=== PATIENT | male | born 1935 | race Caucasian/White ===

== ENCOUNTER 2021-05-27 12:21 | Inpatient (IN) | payer MEDICARE, BC ==
[~2021-05-27] VITALS: Ht 177.8 cm; Wt 64.5 kg
[2021-05-27] VITALS (8 sets, daily range): BP systolic 113–150; BP diastolic 72–89
[~2021-05-27 12:21] MED LIST: aspirin 81mg tab.chew ONE; heparin 10,000 units/1 ML INJ ONE; heparin, porcine-25,000 units/D5-250ml premix IV ONE; normal saline 1000ML IV soln ONE
[2021-05-27] MEDS ORDERED: aspirin 81mg tab.chew PO ONE (12:40)
[2021-05-27] MEDS ORDERED: heparin 10,000 units/1 ML INJ IV ONE (12:40)
[2021-05-27] MEDS ORDERED: fentaNYL/PF 50MCG/1 ML 2ML syringe ONE (12:45)
[2021-05-27] MEDS ORDERED: midazolam 1 mg/ML 2ml injection ONE (12:45)
[2021-05-27] MEDS ORDERED: nitroGLYCERIN-Tridil 50MG/D5W 250 ML IV ONE (12:45)
[2021-05-27] MEDS ORDERED: LIDOcaine 1% (10mg/ml)w/preservative inj. 20ml MDV ONE (12:45)
[2021-05-27] MEDS ORDERED: iohexol 350 MG/1 ML 200ml bottle ONE (12:46)
[2021-05-27] MEDS ORDERED: iohexol 350 MG/ML 50ML vial IV ONE (12:46)
--- NOTE | 2021-05-27 12:54 | NUR ---
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
[2021-05-27 12:57] LABS: BASOPHILS % (AUTO) 0.4 % (0-1); EOSINOPHILS % (AUTO) 0.1 % (0-6); HEMOGLOBIN 14.5 g/dl (14.0-17.9); LYMPHOCYTES # (AUTO) 1.3 X10'3 (1.1-4.8); MEAN CORPUSCULAR HEMOGLOBIN 30.5 PG (27.0-31.0); MEAN CORPUSCULAR HGB CONC 32.2 g/dL (33.0-36.5); MEAN CORPUSCULAR VOLUME 94.7 FL (78-98); MEAN PLATELET VOLUME 8.9 FL (7.4-10.4); MONOCYTES # (AUTO) 0.6 X10'3 (0-0.9); MONOCYTES % (AUTO) 5.1 % (2-12); NEUTROPHILS # (AUTO) 10.6 X10'3 (1.8-7.7); NEUTROPHILS % (AUTO) 84.4 % (42-75); PLATELET COUNT 237 X10'3 (140-440); RED BLOOD COUNT 4.75 X10'6 (4.70-6.10); RED CELL DISTRIBUTION WIDTH 14.1 % (11.5-14.5); WHITE BLOOD COUNT 12.6 X10'3 (4.5-11.0)
[2021-05-27] MEDS ORDERED: heparin 1,000unit/ml 10ml vial 10 ML ONE (13:02)
[2021-05-27 13:05] LABS: APTT 28 SECONDS (22-32)
[2021-05-27 13:07] LABS: ALANINE AMINOTRANSFERASE 45 U/L (12-78); ALBUMIN 3.4 G/DL (3.4-5.0); ALBUMIN/GLOBULIN RATIO 0.9 (1.1-1.5); ALKALINE PHOSPHATASE 84 IU/L (46-116); ANION GAP 9 (8-16); ASPARTATE AMINO TRANSFERASE 253 U/L (10-37); BILIRUBIN,TOTAL 0.5 MG/DL (0.1-1.0); BLOOD UREA NITROGEN 45 MG/DL (7-18); BUN/CREATININE RATIO 22.7 (5.4-32.0); CALCIUM 8.7 MG/DL (8.5-10.1); CHLORIDE 107 MMOL/L (99-107); CREATININE 1.98 MG/DL (0.60-1.10); GLUCOSE 188 MG/DL (70-104); POTASSIUM 4.8 MMOL/L (3.5-5.1); SODIUM 141 MMOL/L (135-145); TOTAL CARBON DIOXIDE 24.8 MMOL/L (24-32); eGFR 32 ML/MIN
[2021-05-27 13:15] LABS: MAGNESIUM 2.3 MG/DL (1.5-2.4)
[2021-05-27] MEDS: sodium bicarbonate (8.4%) inj. 150 MEQ in dextrose 5%-water 1,000 ML IV SCH (13:15)
[2021-05-27] MEDS ORDERED: acetylcysteine 200 MG/ml 4ml vial PO ONE (13:19)
[2021-05-27] MEDS ORDERED: ticagrelor 90mg tablet ONE (13:45)
[2021-05-27] MEDS ORDERED: nitroGLYCERIN 0.4mg SUBLingual tab SL ONE (13:53)
[2021-05-27] MEDS ORDERED: ondansetron/PF 4mg/2ml inj IV PRN (14:20)
[2021-05-27] MEDS ORDERED: magnesium hydroxide 30ml (MOM) UD suspension PO PRN (14:20)
[2021-05-27] MEDS ORDERED: potassium Cl 20 mEq SR tablet PO PRN ×2 (14:20)
[2021-05-27] MEDS ORDERED: morphine 4 MG/ML inj SYRINge IV PRN (14:20)
[2021-05-27] MEDS ORDERED: morphine 2 MG/ML inj. syringe IV PRN (14:20)
[2021-05-27] MEDS ORDERED: acetaminophen 325mg tablet PO PRN ×2 (14:20)
[2021-05-27] MEDS ORDERED: morphine 2 MG/ML inj. syringe ONE (14:28)
[2021-05-27] MEDS ORDERED: FINA5TAB11 PO (14:33)
[2021-05-27] MEDS ORDERED: ROSU5TAB PO (14:33)
[2021-05-27] MEDS ORDERED: PRAM0.253 PO (14:33)
[2021-05-27] MEDS ORDERED: FLO0.4C PO (14:33)
[2021-05-27] MEDS ORDERED: METO-384 PO (14:33)
[2021-05-27] MEDS ORDERED: AMLO-708 PO (14:33)
[2021-05-27] MEDS ORDERED: LORazepam 2 mg/ml vial ONE (14:39)
[2021-05-27] MEDS ORDERED: naloxone 0.4 mg/ml inj ONE (14:53)
[2021-05-27] MEDS ORDERED: nitroGLYCERIN 0.4mg SUBLingual tab SL PRN (16:20)
[2021-05-27] MEDS ORDERED: ticagrelor 90mg tablet PO ONE (16:30)
--- NOTE | 2021-05-27 17:41 | NUR ---
Notified Dr. Andrade of troponin level >125,000
[2021-05-27] MEDS: metoprolol tartrate 25mg tablet PO SCH (19:48)
[2021-05-27] MEDS: acetylcysteine 200 MG/ml 4ml vial PO SCH (19:52)
--- NOTE | 2021-05-27 21:30 | NUR ---
ACT 178
--- NOTE | 2021-05-27 22:30 | NUR ---
Rt groin sheath DC'd at this time with direct pressure held x 20 min then fem-stop applied. groin without s/s of hematoma, +doppler pulse to right dorsal pedal pulse.
[2021-05-28] VITALS (19 sets, daily range): BP systolic 96–130; BP diastolic 45–75
[2021-05-28] MEDS: sodium bicarbonate (8.4%) inj. 150 MEQ in dextrose 5%-water 1,000 ML IV SCH ×2 (01:31→12:15)
--- NOTE | 2021-05-28 02:15 | NUR ---
when attempting to scan meds at 0200, noted zosyn and lasix previously scanned did not register as given. Unable to scan meds again as packaging is not accessible at this time. Redocumented medications as given on apr.
[2021-05-28 05:46] LABS: BASOPHILS % (AUTO) 0.2 % (0-1); EOSINOPHILS % (AUTO) 0 % (0-6); HEMATOCRIT 43.6 % (42.0-52.0); HEMOGLOBIN 14.5 g/dl (14.0-17.9); LYMPHOCYTES # (AUTO) 0.8 X10'3 (1.1-4.8); LYMPHOCYTES % (AUTO) 5.7 % (21-51); MEAN CORPUSCULAR HEMOGLOBIN 31.3 PG (27.0-31.0); MEAN CORPUSCULAR HGB CONC 33.2 g/dL (33.0-36.5); MEAN CORPUSCULAR VOLUME 94.1 FL (78-98); MEAN PLATELET VOLUME 9.1 FL (7.4-10.4); MONOCYTES # (AUTO) 0.8 X10'3 (0-0.9); MONOCYTES % (AUTO) 5.3 % (2-12); NEUTROPHILS # (AUTO) 13.1 X10'3 (1.8-7.7); NEUTROPHILS % (AUTO) 88.8 % (42-75); PLATELET COUNT 230 X10'3 (140-440); RED BLOOD COUNT 4.63 X10'6 (4.70-6.10); RED CELL DISTRIBUTION WIDTH 13.9 % (11.5-14.5); WHITE BLOOD COUNT 14.8 X10'3 (4.5-11.0)
[2021-05-28 06:17] LABS: ALBUMIN 2.7 G/DL (3.4-5.0); ANION GAP 8 (8-16); BLOOD UREA NITROGEN 38 MG/DL (7-18); BUN/CREATININE RATIO 22.6 (5.4-32.0); CHLORIDE 106 MMOL/L (99-107); CHOL/HDL RATIO 2.3 (0.00-4.99); CHOLESTEROL 133 MG/DL (0-200); CREATININE 1.68 MG/DL (0.60-1.10); GLUCOSE 138 MG/DL (70-104); HDL CHOLESTEROL 57 MG/DL (35-60); LDL CHOLESTEROL 64 MG/DL (50-100); POTASSIUM 4.3 MMOL/L (3.5-5.1); SODIUM 143 MMOL/L (135-145); TOTAL CARBON DIOXIDE 28.9 MMOL/L (24-32); TRIGLYCERIDES 74 MG/DL (20-135); eGFR 39 ML/MIN
[2021-05-28] MEDS ORDERED: atorvastatin 20mg tablet PO SCH (08:00)
[2021-05-28] MEDS: ticagrelor 90mg tablet PO SCH ×2 (08:54→20:15)
[2021-05-28] MEDS: metoprolol tartrate 25mg tablet PO SCH (08:54)
[2021-05-28] MEDS: lisinopril 5mg tablet PO SCH (08:55)
[2021-05-28] MEDS: aspirin 81mg tab.chew PO SCH (08:55)
[2021-05-28] MEDS: acetylcysteine 200 MG/ml 4ml vial PO SCH ×2 (08:56→20:00)
[2021-05-28] MEDS ORDERED: TICA90TA PO ×2 (13:32)
[2021-05-28] MEDS ORDERED: ASPI81TA53 PO ×2 (13:32)
[2021-05-28] MEDS: normal saline 1000ml 1,000 ML IV SCH (16:50)
--- NOTE | 2021-05-28 18:24 | NUR ---
[place]rientee documentation: I have reviewed and agree with all interventions, assessments performed and documented by ANGIE Brennan.
[2021-05-28] MEDS: pramipexole 0.25mg tablet PO SCH (20:15)
[2021-05-29] VITALS (16 sets, daily range): BP systolic 91–138; BP diastolic 41–79
[2021-05-29] MEDS: normal saline 1000ml 1,000 ML IV SCH ×3 (02:34→22:15)
[2021-05-29 07:04] LABS: BASOPHILS % (AUTO) 0.2 % (0-1); EOSINOPHILS % (AUTO) 0.1 % (0-6); HEMOGLOBIN 13.3 g/dl (14.0-17.9); LYMPHOCYTES # (AUTO) 1.4 X10'3 (1.1-4.8); LYMPHOCYTES % (AUTO) 9.8 % (21-51); MEAN CORPUSCULAR HEMOGLOBIN 31.4 PG (27.0-31.0); MEAN CORPUSCULAR HGB CONC 33.1 g/dL (33.0-36.5); MEAN CORPUSCULAR VOLUME 94.8 FL (78-98); MEAN PLATELET VOLUME 9.2 FL (7.4-10.4); MONOCYTES # (AUTO) 1.2 X10'3 (0-0.9); MONOCYTES % (AUTO) 8.6 % (2-12); NEUTROPHILS # (AUTO) 11.6 X10'3 (1.8-7.7); NEUTROPHILS % (AUTO) 81.3 % (42-75); PLATELET COUNT 197 X10'3 (140-440); RED BLOOD COUNT 4.22 X10'6 (4.70-6.10); RED CELL DISTRIBUTION WIDTH 14.2 % (11.5-14.5); WHITE BLOOD COUNT 14.2 X10'3 (4.5-11.0)
[2021-05-29 07:20] LABS: ALBUMIN 2.5 G/DL (3.4-5.0); ANION GAP 12 (8-16); BLOOD UREA NITROGEN 52 MG/DL (7-18); CHLORIDE 103 MMOL/L (99-107); GLUCOSE 98 MG/DL (70-104); POTASSIUM 4.1 MMOL/L (3.5-5.1); SODIUM 142 MMOL/L (135-145); TOTAL CARBON DIOXIDE 27.4 MMOL/L (24-32); eGFR 24 ML/MIN
[2021-05-29] MEDS: aspirin 81mg tab.chew PO SCH (07:25)
[2021-05-29] MEDS: metoprolol succinate 25mg (24-HOUR) SR. Tablet PO SCH (07:26)
[2021-05-29] MEDS: atorvastatin 20mg tablet PO SCH (07:26)
[2021-05-29] MEDS: tamsulosin 0.4mg capsule PO SCH (07:30)
[2021-05-29] MEDS: ticagrelor 90mg tablet PO SCH ×2 (07:31→19:37)
[2021-05-29] MEDS: finasteride 5mg tablet PO SCH (07:32)
[2021-05-29] MEDS: acetylcysteine 200 MG/ml 4ml vial PO SCH ×2 (07:37→19:38)
--- NOTE | 2021-05-29 07:43 | NUR ---
Patient refuses placement of new PIV at this time
[2021-05-29] MEDS ORDERED: amLODIPine 5mg tablet PO SCH (08:00)
[2021-05-29] MEDS: lisinopril 5mg tablet PO SCH (08:00)
[2021-05-29] MEDS ORDERED: furosemide 10 MG/1 ML 10ml inj IV ONE (08:35)
[2021-05-29] MEDS: DOBUTamine-DoBUTrex 500mg/D5W 250 ML IV SCH (12:58)
--- NOTE | 2021-05-29 18:04 | NUR ---
Orientee documentation: I have reviewed and agree with all interventions, assessments performed and documented by ANGIE Brennan II.
[2021-05-29] MEDS: pramipexole 0.25mg tablet PO SCH (19:49)
[2021-05-30] VITALS (15 sets, daily range): BP systolic 91–141; BP diastolic 43–68
--- NOTE | 2021-05-30 06:30 | NUR ---
Patient in room PCU 3018. I have received report from MARGARITA Eng and had the opportunity to ask questions and assume patient care.
[2021-05-30 07:20] LABS: BASOPHILS % (AUTO) 0.3 % (0-1); EOSINOPHILS % (AUTO) 0.1 % (0-6); HEMATOCRIT 38.7 % (42.0-52.0); HEMOGLOBIN 12.7 g/dl (14.0-17.9); LYMPHOCYTES # (AUTO) 1.1 X10'3 (1.1-4.8); LYMPHOCYTES % (AUTO) 9.1 % (21-51); MEAN CORPUSCULAR HEMOGLOBIN 30.8 PG (27.0-31.0); MEAN CORPUSCULAR HGB CONC 32.9 g/dL (33.0-36.5); MEAN CORPUSCULAR VOLUME 93.5 FL (78-98); MEAN PLATELET VOLUME 9.5 FL (7.4-10.4); MONOCYTES # (AUTO) 1.1 X10'3 (0-0.9); MONOCYTES % (AUTO) 8.5 % (2-12); NEUTROPHILS # (AUTO) 10.3 X10'3 (1.8-7.7); PLATELET COUNT 213 X10'3 (140-440); RED BLOOD COUNT 4.14 X10'6 (4.70-6.10); RED CELL DISTRIBUTION WIDTH 14.4 % (11.5-14.5); WHITE BLOOD COUNT 12.6 X10'3 (4.5-11.0)
[2021-05-30 07:41] LABS: ALBUMIN 2.5 G/DL (3.4-5.0); ANION GAP 10 (8-16); BLOOD UREA NITROGEN 61 MG/DL (7-18); BUN/CREATININE RATIO 20.3 (5.4-32.0); CALCIUM 7.8 MG/DL (8.5-10.1); CHLORIDE 105 MMOL/L (99-107); CREATININE 3.01 MG/DL (0.60-1.10); GLUCOSE 101 MG/DL (70-104); POTASSIUM 3.4 MMOL/L (3.5-5.1); SODIUM 142 MMOL/L (135-145); eGFR 20 ML/MIN
[2021-05-30] MEDS: lisinopril 5mg tablet PO SCH (08:00)
[2021-05-30] MEDS: metoprolol succinate 25mg (24-HOUR) SR. Tablet PO SCH (08:00)
[2021-05-30] MEDS: ticagrelor 90mg tablet PO SCH ×2 (08:55→20:01)
[2021-05-30] MEDS: aspirin 81mg tab.chew PO SCH (08:55)
[2021-05-30] MEDS: tamsulosin 0.4mg capsule PO SCH (08:55)
[2021-05-30] MEDS: normal saline 1000ml 1,000 ML IV SCH ×2 (08:57→14:38)
[2021-05-30] MEDS: atorvastatin 20mg tablet PO SCH (08:57)
[2021-05-30] MEDS: finasteride 5mg tablet PO SCH (08:59)
[2021-05-30] MEDS: acetylcysteine 200 MG/ml 4ml vial PO SCH ×2 (09:02→20:01)
--- NOTE | 2021-05-30 09:11 | NUR ---
Paged hospitalist: Message: Room: 5481B: Martha: Pt's BP 95/49 HR 108. Would you like me to hold the pt's lisinopril and/or metoprolol? Pt's currently on a dobutamine drip. -[facility] [id number]
--- NOTE | 2021-05-30 09:32 | NUR ---
Paged hospitalist: PAGER ID: [phone] MESSAGE: Room: 7149D: Nilo: The pt's BP is 98/56 (69) with a HR of 92. I'm holding the pt's Lasix, metoprolol, and amiodarone. MARGARITA Souza [id number] Addendum: 05/30/21 at 1254 by Libby Keating RN Wrong patient. Please disregard.
[2021-05-30] MEDS ORDERED: potassium Cl 20 mEq SR tablet PO PRN ×2 (11:32→11:33)
[2021-05-30] MEDS ORDERED: potassium chloride 10mEq ER tablet PO PRN (11:33)
[2021-05-30] MEDS: DOBUTamine-DoBUTrex 500mg/D5W 250 ML IV SCH (12:02)
--- NOTE | 2021-05-30 12:54 | NUR ---
Hospitalist paged: Message: Room: 9249B: Pt is inquiring about discharge, today. -MARGARITA Souza 5441 Transaction number: [id number]
--- NOTE | 2021-05-30 18:42 | NUR ---
Problems reprioritized. Patient report given, questions answered & plan of care reviewed with MARGARITA Eng.
[2021-05-30] MEDS: pramipexole 0.25mg tablet PO SCH (20:01)
[2021-05-31] VITALS (7 sets, daily range): BP systolic 119–147; BP diastolic 45–82
[2021-05-31] MEDS: normal saline 1000ml 1,000 ML IV SCH ×2 (00:22→09:40)
--- NOTE | 2021-05-31 05:58 | NUR ---
Pt BP 148/75. HR 120s. pt on dobutamine gtt @9.67mL/hr. MD Miller telephone order to hold gtt at this time, day shift to evaluate further. Pt also c/o of dry/congested nostril and bloody nose when blowing nose, no active bleeding noticed at this time. MD aware pt on ASA and Brilinta for recent cardiac cath and stent. Orders placed for nasal spray and PT/INR per telephone orders. will make oncoming RN aware.
[2021-05-31] MEDS ORDERED: salt irrigation nasal spray 45 ML SPRAY NS PRN (06:00)
--- NOTE | 2021-05-31 06:30 | NUR ---
Patient in room PCU 3018. I have received report from MARGARITA Eng and had the opportunity to ask questions and assume patient care.
[2021-05-31 07:04] LABS: BASOPHILS % (AUTO) 0.1 % (0-1); EOSINOPHILS % (AUTO) 0.3 % (0-6); HEMOGLOBIN 12.6 g/dl (14.0-17.9); LYMPHOCYTES # (AUTO) 0.6 X10'3 (1.1-4.8); LYMPHOCYTES % (AUTO) 4.9 % (21-51); MEAN CORPUSCULAR HEMOGLOBIN 31.1 PG (27.0-31.0); MEAN CORPUSCULAR HGB CONC 33.1 g/dL (33.0-36.5); MEAN PLATELET VOLUME 9.3 FL (7.4-10.4); MONOCYTES # (AUTO) 0.9 X10'3 (0-0.9); MONOCYTES % (AUTO) 7.7 % (2-12); NEUTROPHILS # (AUTO) 9.9 X10'3 (1.8-7.7); PLATELET COUNT 226 X10'3 (140-440); RED BLOOD COUNT 4.05 X10'6 (4.70-6.10); RED CELL DISTRIBUTION WIDTH 14.4 % (11.5-14.5); WHITE BLOOD COUNT 11.4 X10'3 (4.5-11.0)
[2021-05-31 07:27] LABS: ALBUMIN 2.4 G/DL (3.4-5.0); ANION GAP 9 (8-16); BLOOD UREA NITROGEN 55 MG/DL (7-18); BUN/CREATININE RATIO 21.7 (5.4-32.0); CALCIUM 7.7 MG/DL (8.5-10.1); CHLORIDE 109 MMOL/L (99-107); CREATININE 2.54 MG/DL (0.60-1.10); GLUCOSE 111 MG/DL (70-104); MAGNESIUM 1.9 MG/DL (1.5-2.4); POTASSIUM 3.5 MMOL/L (3.5-5.1); SODIUM 141 MMOL/L (135-145); TOTAL CARBON DIOXIDE 23.1 MMOL/L (24-32); eGFR 24 ML/MIN
[2021-05-31] MEDS ORDERED: heparin, porcine 5000 units/ml vial SQ SCH (08:00)
--- NOTE | 2021-05-31 08:34 | NUR ---
Initial: Pt admitted w/ acute anterior wall myocardial infarction presenting as STEMI per EMR. Currently on Regular diet w/ mostly 75-100% meal intake meeting est nutrient needs at this time. LBM 05/30. No nutrition intervention implemented at this time, will continue to monitor. Recs: 1. Continue Regular diet as tolerated; lipids WNL 2. Bowel care per rx 3. Scaled wts Addendum: 05/31/21 at [address] Amended: Links added.
[2021-05-31] MEDS: ticagrelor 90mg tablet PO SCH (09:41)
[2021-05-31] MEDS: finasteride 5mg tablet PO SCH (09:41)
[2021-05-31] MEDS: aspirin 81mg tab.chew PO SCH (09:41)
[2021-05-31] MEDS: atorvastatin 20mg tablet PO SCH (09:43)
[2021-05-31] MEDS: metoprolol succinate 25mg (24-HOUR) SR. Tablet PO SCH (09:43)
[2021-05-31] MEDS: tamsulosin 0.4mg capsule PO SCH (09:43)
[2021-05-31] MEDS: acetylcysteine 200 MG/ml 4ml vial PO SCH (09:44)
[2021-05-31] MEDS ORDERED: LOSA50TA64 PO (09:57)
[2021-05-31] MEDS ORDERED: NITR0.4T51 SL (09:57)
[2021-05-31] MEDS ORDERED: losartan 50mg tablet PO SCH (12:00)
--- NOTE | 2021-05-31 15:04 | NUR ---
Pt discharged to home from the hospital with family present. Discharge paperwork signed and reviewed with this publicity writer. All questions answered prior to discharge. Pt to make follow up appointments post discharge. Discharge medications to be picked up at the pt's preferred pharmacy. Lab slip provided to pt. Belongings returned. PIV and telemetry removed.
[2021-06-09] MEDS ORDERED: NITR0.4T48 (07:28)
[2021-06-09] MEDS ORDERED: TICA90TA2 PO (07:29)
[2021-06-09] MEDS ORDERED: ASPI-1265 PO (07:29)
[2021-06-09] MEDS ORDERED: LOSA50TA64 PO (07:30)
== END 2021-05-31 15:04 | disposition home or self-care (01) | DRG 246 ==
LOC: ER 12:22 → ICU 2S 14:18 → PCU 3S 05-28 16:05
PROVIDERS: ADMIT Surgery; ATTEND Surgery
PROC: 4A023N7 Measurement of Cardiac Sampling and Pressure, Left Heart, Percutaneous Approach (ICD-10-PCS; principal; 2021-05-27)
PROC: 027034Z Dilation of Coronary Artery, One Artery with Drug-eluting Intraluminal Device, Percutaneous Approach (ICD-10-PCS; 2021-05-27)
PROC: 02703ZZ Dilation of Coronary Artery, One Artery, Percutaneous Approach (ICD-10-PCS; 2021-05-27)
PROC: B2111ZZ Fluoroscopy of Multiple Coronary Arteries using Low Osmolar Contrast (ICD-10-PCS; 2021-05-27)
PROC: B2151ZZ Fluoroscopy of Left Heart using Low Osmolar Contrast (ICD-10-PCS; 2021-05-27)
DX: I21.09 ST elevation (STEMI) myocardial infarction involving other coronary artery of anterior wall (principal); I50.21 Acute systolic (congestive) heart failure; N18.9 Chronic kidney disease, unspecified; I25.10 Atherosclerotic heart disease of native coronary artery without angina pectoris; E78.00 Pure hypercholesterolemia, unspecified; J44.9 Chronic obstructive pulmonary disease, unspecified; E78.5 Hyperlipidemia, unspecified; F17.210 Nicotine dependence, cigarettes, uncomplicated; I95.9 Hypotension, unspecified; N40.0 Benign prostatic hyperplasia without lower urinary tract symptoms; Z79.899 Other long term (current) drug therapy; Z71.6 Tobacco abuse counseling
CPT/HCPCS: 93306; 93458; 99291; C9606; 36415; 71045; 76937; 80048; 80053; 80061; 82948; 83735; 83880; 84484; 85025; 85347; 85610; 85730; 87081; 93005; 99152; 99153; A4620; A6258; C1725; C1751; C1769; C1874; C1894; G0378; J1250; J1644; J1940; J2060; J2250; J2270; J2310; J3010; J3490; J7030; J7040; J7070; Q9967